=== PATIENT | male | born 1950 | race Caucasian/White ===

== ENCOUNTER 2016-09-29 08:10 | Day surgery (SDC) | payer OTHER, MEDICARE ==
[2016-09-29] MEDS ORDERED: LACTATED RINGERS 1,000 ML ONE (08:19)
[2016-09-29] MEDS ORDERED: IV START KIT ONE (08:19)
[2016-09-29] MEDS ORDERED: PROPOFOL 40 ML IV ONE (09:33)
[2016-09-29] MEDS ORDERED: LACTATED RINGERS 1,000 ML IV SCH (10:15)
--- NOTE | 2016-10-01 09:34 | SURGPATH ---
[facility] [address] [place] [id number] Patient Name: NEVILLE LAZAR MR#: [id number] : 1950 Gender: M Specimen #: [id number] Collected: 09/29/2016 Received: 09/30/2016 Reported: 10/01/2016 Submitting Phys: ANASTACIA LIPSCOMB Copy To Phys: [facility] Clinical History / Pre-Operative Diagnosis: HISTORY OF ULCERATIVE COLITIS Specimen Source / Surgical Procedure Performed: #1-RANDOM TERMINAL ILEUM BIOPSY; #2-RANDOM ASCENDING COLON BIOPSY; #3-RANDOM TRANSVERSE COLON BIOPSY; #4-RANDOM DESCENDING COLON BIOPSY; #5-RANDOM SIGMOID COLON BIOPSY; #6-RANDOM RECTAL BIOPSY Interpretation: 1, 2, 3, 4. RANDOM TERMINAL ILEUM, RANDOM ASCENDING COLON, RANDOM TRANSVERSE COLON, RANDOM DESCENDING COLON, BIOPSIES: - NO PATHOLOGIC DIAGNOSIS 5, 6. RANDOM SIGMOID COLON, RANDOM RECTUM, BIOPSIES: - HYPERPLASTIC POLYPS Electronically Signed Out Itz Fuentes M.D. Gross Description: #1 The specimen is received in a formalin filled container labeled with the patient's name and "random terminal ileum biopsy". Two smith biopsies are each 0.3 cm. Totally embedded in cassette #1. #2 The specimen is received in a formalin filled container labeled with the patient's name and "random ascending colon biopsy". Five dunn-smith biopsies are 0.3-0.6 cm. Totally embedded in cassette #2. #3 The specimen is received in a formalin filled container labeled with the patient's name and "random transverse colon". Four smith biopsies are 0.3-0.4 cm. Totally embedded in cassette #3. #4 The specimen is received in a formalin filled container labeled with the patient's name and "random descending colon". Three smith biopsies are 0.3, 0.4 and 0.4 cm. Totally embedded in cassette #4. #5 The specimen is received in a formalin filled container labeled with the patient's name and "random sigmoid biopsies". Five dunn-smith biopsies are 0.3-0.5 cm. Totally embedded in cassette #5. #6 The specimen is received in a formalin filled container labeled with the patient's name and "random rectal biopsies". Three dunn biopsies are 0.3, 0.4 and 0.4 cm. Totally embedded in cassette #6. [place] Microscopic Description: 1. Levels reveal small intestinal mucosa with a villous architecture and prominent lymphoid aggregates consistent with ileum. Ulceration, acute inflammation, granulomas, dysplasia and malignancy are not present. 2, 3, 4. Levels reveal colonic mucosa with a normal glandular architecture. Ulceration, acute inflammation, crypt abscesses, granulomas, hyperplasia, dysplasia and malignancy are not seen. Features of ulcerative colitis are not present. 5, 6. Levels reveal colonic mucosa surfaced by tubular glands with focal hyperplastic features. Adenomatous and malignant features are not present. 1: [id number] 2: 73655 3: 58168 4: 17988 5: 86696 6: 00886 K63.5 K62.1
== END 2016-09-29 10:25 | disposition home or self-care (01) ==
LOC: SDC 08:10
PROVIDERS: ATTEND Surgery
DX: Z12.11 Encounter for screening for malignant neoplasm of colon (principal); Z86.010 Personal history of colon polyps; K51.919 Ulcerative colitis, unspecified with unspecified complications; I10 Essential (primary) hypertension; K58.9 Irritable bowel syndrome, unspecified; Z87.891 Personal history of nicotine dependence
CPT/HCPCS: 45380; J7120